=== PATIENT | female | born 1930 | race Caucasian/White ===

== ENCOUNTER → 2016-04-17 | Outpatient (CLI) | payer OTHER | LOC: GMAM 10:37 | PROVIDERS: ATTEND Family Medicine | DX: N39.0 Urinary tract infection, site not specified (principal); E03.9 Hypothyroidism, unspecified ==

== ENCOUNTER → 2016-07-26 | Outpatient (CLI) | payer OTHER | LOC: GMAM 13:49 | PROVIDERS: ATTEND Family Medicine | DX: N18.9 Chronic kidney disease, unspecified (principal) ==

== ENCOUNTER → 2016-08-25 | Outpatient (CLI) | payer OTHER ==
--- NOTE | 2016-08-25 14:21 | CT ---
Procedure: CT ABDOMEN WITHOUT IV CONTRAST Exam Date: 08/25/2016 12:00 AM CDT Ordering Provider: Miranda Felix Clinical Indication: LLQ ABD PAIN.R10.32 Comparison: None TECHNIQUE: CT of the abdomen and pelvis WITHOUT intravenous contrast. The abdomen and pelvis were scanned utilizing a multidetector helical scanner from the diaphragm to the lesser trochanter. Coronal and sagittal reformations were obtained. DISCUSSION: ABSENCE OF INTRAVENOUS CONTRAST DECREASES SENSITIVITY FOR DETECTION OF FOCAL LESIONS AND VASCULAR PATHOLOGY. LOWER THORAX: Subcentimeter calcified granuloma are seen in the right lower lobe. Heart size is enlarged. HEPATOBILIARY: No focal hepatic lesions. No biliary ductal dilatation. SPLEEN: Punctate calcifications are seen in the spleen. PANCREAS: No focal masses or ductal dilatation. ADRENALS: No adrenal nodules. KIDNEYS/URETERS: No hydronephrosis, stones, or solid mass lesions. PELVIC ORGANS/BLADDER: Uterus is surgically absent. The bladder is unremarkable. PERITONEUM / RETROPERITONEUM: No free air or fluid. LYMPH NODES: No lymphadenopathy. VESSELS: Scattered vascular calcifications are seen in the abdominal aorta. No aneurysmal dilatation. GI TRACT: Small sliding-type hiatal hernia is present. The visualized small bowel is unremarkable. There is extensive descending and sigmoid diverticulosis. There is no evidence of diverticulitis. Evaluation is slightly limited in the absence of IV contrast for diverticulitis. BONES AND SOFT TISSUES: There is mild levoscoliosis of the lumbar spine. The bones are osteopenic. IMPRESSION: 1. Extensive colonic diverticulosis without definite diverticulitis. 2. Small sliding-type hiatal hernia. 3. 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 Electronically signed by: Amanuel Nelson MD 08/25/2016 2:21 PM CDT
== END | disposition home or self-care (01) ==
LOC: CT 13:26
PROVIDERS: ATTEND Nurse Practitioner Family
DX: R10.32 Left lower quadrant pain (principal)

== ENCOUNTER → 2016-09-07 | Outpatient (CLI) | payer OTHER | END | disposition home or self-care (01) | LOC: GMAM 16:46 | PROVIDERS: ATTEND Family Medicine | DX: R31.21 Asymptomatic microscopic hematuria (principal) ==

== ENCOUNTER → 2016-10-06 | Outpatient (CLI) | payer OTHER | LOC: GMAM 12:51 | PROVIDERS: ATTEND Family Medicine | DX: E03.9 Hypothyroidism, unspecified (principal); I10 Essential (primary) hypertension; E11.9 Type 2 diabetes mellitus without complications ==

== ENCOUNTER → 2016-10-11 | Outpatient (CLI) | payer OTHER | LOC: GMAM 17:09 | PROVIDERS: ATTEND Family Medicine | DX: D64.9 Anemia, unspecified (principal) ==

== ENCOUNTER → 2017-04-16 | Outpatient (CLI) | payer OTHER | END | disposition home or self-care (01) | LOC: GMAM 11:02 | PROVIDERS: ATTEND Family Medicine | DX: D51.3 Other dietary vitamin B12 deficiency anemia (principal); E03.9 Hypothyroidism, unspecified ==

== ENCOUNTER → 2017-07-09 | Outpatient (CLI) | payer OTHER | LOC: GMAM 13:03 | PROVIDERS: ATTEND Family Medicine | DX: E03.9 Hypothyroidism, unspecified (principal); D51.3 Other dietary vitamin B12 deficiency anemia ==

== ENCOUNTER → 2017-07-23 | Outpatient (CLI) | payer OTHER | LOC: GMA 14:41 | PROVIDERS: ATTEND Family Medicine | DX: R80.9 Proteinuria, unspecified (principal) ==

== ENCOUNTER → 2017-10-18 | Outpatient (CLI) | payer MEDICARE | LOC: GMAM 10:56 | PROVIDERS: ATTEND Family Medicine | DX: E03.9 Hypothyroidism, unspecified (principal) ==

== ENCOUNTER → 2018-05-06 | Outpatient (CLI) | payer MEDICARE | LOC: GMAM 10:35 | PROVIDERS: ATTEND Family Medicine | DX: D51.3 Other dietary vitamin B12 deficiency anemia (principal); E03.9 Hypothyroidism, unspecified ==